=== PATIENT | male | born 1975 | race Caucasian/White ===

== ENCOUNTER 2017-11-02 19:10 | Emergency (ER) | payer OTHER ==
[~2017-11-02] VITALS: Ht 172.7 cm; Wt 95.0 kg
[2017-11-02 19:11] VITALS: BP 127/83; PULSE 83; RESP 20; TEMP 98.6; O2SAT 99
--- NOTE | 2017-11-02 19:17 | PD ---
HPI Chief Complaint: Flank/Kidney Pain Time Seen by Provider: 19:16 Travel History International Travel<30 days: No Contact w/Intl Traveler<30days: No Traveled to known affect area: No History of Present Illness HPI The patient is a 41 year old male who presents to the [facility] emergency department with a history of left flank pain that began suddenly approximately an hour ago. The patient reports that the pain is similar to when he had kidney stones in the past. He reports having pain that is sharp that is coming and going. He reports that the pain is severe when it occurs. The patient denies having any radiation of pain. He reports having associated nausea without vomiting. He denies having any diarrhea. He reports that he's been moving his bowels regularly. He denies having any dysuria or urinary frequency , however last week he did have an episode of urinary urgency and incontinence when trying to get to the bathroom. He reports that he's ever had this previously. His last kidney stone was several years ago. He denies having a urologist. On review of systems, patient denies having any known fevers, cough , congestion, neck pain, chest pain, shortness of breath, abdominal pain, or neurologic symptoms. PFSH Past Medical History Narrative Medical The patient's past medical history is significant for kidney stones, depression and anxiety, history of bursitis of the left hip and a cyst involving the left hip. Past Surgical History Narrative Surgical The patient's past surgical history is reportedly none. Social History Alcohol Use: Yes (1-2 drinks daily) Tobacco Use: No Substance Use: No Allergies-Medications (Allergen,Severity, Reaction): Coded Allergies: No Known Allergies (Unverified , 11/02/17) Reported Meds & Prescriptions Reported Meds & Active Scripts Active Hydrocodone-Acetaminophen 5-325 mg Tab 1 Tab PO Q6H PRN Flomax (Tamsulosin HCl) 0.4 Mg Cap 0.4 Mg PO HS Ibuprofen 600 Mg Tab 600 Mg PO Q8H PRN Narrative Medication Zoloft, meloxicam Review of Systems Except as stated in HPI: all other systems reviewed are Neg General / Constitutional: No: Fever Eyes: No: Visual changes HENT: No: Headaches Cardiovascular: No: Chest Pain or Discomfort Respiratory: No: Shortness of Breath Gastrointestinal: Positive: Nausea, No: Vomiting, Diarrhea, Abdominal Pain Genitourinary: Positive: Urgency, Flank Pain, No: Frequency, Dysuria Musculoskeletal: No: Pain Skin: No Rash Neurologic: No: Weakness, Change in Mentation, Slurred Speech, Sensory Disturbance Psychiatric: No: Depression Endocrine: No: Polydipsia Hematologic/Lymphatic: No: Easy Bruising Physical Exam Narrative General: The patient is a well-developed well-nourished male, uncomfortable appearing on arrival, writhing around in the bed related to left flank pain. Head and Neck exam: Head is normocephalic atraumatic. Eyes: EOMI, pupils are equal round and reactive to light. Nose: Midline septum with pink mucous membranes Mouth: Dentition unremarkable. Moist mucus membranes. Posterior oropharynx is not erythematous. No tonsillar hypertrophy. Uvula midline. Airway patent. Neck: No palpable lymphadenopathy. No nuchal rigidity. No thyromegaly. Cardiovascular: Regular rate and rhythm without murmurs, gallops, or rubs. Lungs: Clear to auscultation bilaterally. No wheezes, rhonchi, or rales. Abdomen: Soft, without tenderness to palpation in all 4 quadrants of the abdomen. No guarding, rebound, or rigidity. Normal bowel sounds are audible. No tenderness on palpation of McBurney's point. Extremities: No clubbing, cyanosis, or edema. 2+ pulses in all 4 extremities. No calf tenderness on palpation. Back: No spinous process tenderness to palpation. Left-sided CVA tenderness on palpation. Neurologic Exam: Grossly nonfocal. Skin Exam: No rash noted. Intact skin that is warm and dry. Data Data Last Documented VS Vital Signs Date Time Temp Pulse Resp B/P (MAP) Pulse Ox O2 Delivery O2 Flow Rate FiO2 11/02/17 19:23 65 20 127/98 (108) 100 Room Air 11/02/17 19:11 98.6 Orders Orders Complete Blood Count With Diff (11/02/17 19:16) Comprehensive Metabolic Panel (11/02/17 19:16) C-Reactive Protein (Crp) (11/02/17 19:16) Lipase (11/02/17 19:16) Urinalysis - C+S If Indicated (11/02/17 19:16) Iv Access Insert/Monitor (11/02/17 19:16) Ecg Monitoring (11/02/17 19:16) Oximetry (11/02/17 19:16) Sodium Chlor 0.9% 1000 Ml Inj (Ns 1000 M (11/02/17 19:45) Ondansetron Inj (Zofran Inj) (11/02/17 19:45) Ketorolac Inj (Toradol Inj) (11/02/17 19:45) Ct Abd/Pel W/O Iv Contrast (11/02/17 19:34) Ed Discharge Order (11/02/17 21:27) Labs Laboratory Tests Test 11/02/17 19:25 11/02/17 21:00 White Blood Count 10.0 TH/MM3 Red Blood Count 5.02 MIL/MM3 Hemoglobin 15.7 GM/DL Hematocrit 46.1 % Mean Corpuscular Volume 91.8 FL Mean Corpuscular Hemoglobin 31.2 PG Mean Corpuscular Hemoglobin Concent 34.0 % Red Cell Distribution Width 12.6 % Platelet Count 190 TH/MM3 Mean Platelet Volume 7.6 FL Neutrophils (%) (Auto) 65.1 % Lymphocytes (%) (Auto) 26.8 % Monocytes (%) (Auto) 6.0 % Eosinophils (%) (Auto) 1.4 % Basophils (%) (Auto) 0.7 % Neutrophils # (Auto) 6.5 TH/MM3 Lymphocytes # (Auto) 2.7 TH/MM3 Monocytes # (Auto) 0.6 TH/MM3 Eosinophils # (Auto) 0.1 TH/MM3 Basophils # (Auto) 0.1 TH/MM3 CBC Comment DIFF FINAL Differential Comment Blood Urea Nitrogen 16 MG/DL Creatinine 1.22 MG/DL Random Glucose 115 MG/DL Total Protein 7.7 GM/DL Albumin 4.6 GM/DL Calcium Level 9.5 MG/DL Alkaline Phosphatase 51 U/L Aspartate Amino Transf (AST/SGOT) 27 U/L Alanine Aminotransferase (ALT/SGPT) 46 U/L Total Bilirubin 1.2 MG/DL Sodium Level 138 MEQ/L Potassium Level 3.4 MEQ/L Chloride Level 104 MEQ/L Carbon Dioxide Level 26.5 MEQ/L Anion Gap 8 MEQ/L Estimat Glomerular Filtration Rate 65 ML/MIN C-Reactive Protein LESS THAN 0.29 MG/DL Lipase 230 U/L Urine Color YELLOW Urine Turbidity CLEAR Urine pH 6.5 Urine Specific [place] 1.024 Urine Protein TRACE mg/dL Urine Glucose (UA) NEG mg/dL Urine Ketones NEG mg/dL Urine Occult Blood MOD Urine Nitrite NEG Urine Bilirubin NEG Urine Urobilinogen LESS THAN 2.0 MG/DL Urine Leukocyte Esterase NEG Urine RBC 11 /hpf Urine WBC 2 /hpf Urine Calcium Oxalate Crystals RARE /hpf Urine Mucus MANY /lpf Microscopic Urinalysis Comment CULT NOT INDICATED MDM Medical Decision Making Medical Screen Exam Complete: Yes Emergency Medical Condition: Yes Medical Record Reviewed: Yes Differential Diagnosis Kidney stone, versus pyelonephritis, versus musculoskeletal strain Narrative Course During the course of the patients emergency department visit, the patients history, examination, and differential diagnosis were reviewed with the patient. The patient was placed on a monitoring analyst with oximetry and frequent blood pressure monitoring. The patient had IV access obtained and blood work sent for analysis. The patient was initially provided Toradol 15 mg IV, normal saline 1 L IV fluid bolus, Zofran 4 mg IV. The patients laboratory studies were reviewed and remarkable for a CBC that is within normal, CMP is remarkable for potassium of 3.4, glucose 1:15, total bilirubin 1.2, C-reactive protein less than 0.29, lipase 230, urinalysis shows moderate occult blood, 11 rbc's, rare calcium oxalate crystals. Radiology studies were reviewed and remarkable for a CT scan of the abdomen and pelvis that shows acute obstructive uropathy of the left distal ureter secondary to a 3 mm calcified calculus at the left UVJ resulting in mild ureteraal pelvocaliectasis on the left. The patient on reexamination is feeling improved. The patient will be discharged home with follow-up with the urologist on-call, and a prescription for Flomax, ibuprofen, and Lortab. The patient is instructed to discontinue meloxicam while taking the ibuprofen. The patient is resting comfortably and feels better, is alert and in no distress. The patients results and examination findings were discussed with the patient. The repeat examination is unremarkable and benign. The history, exam, diagnostic testing, and current condition do not suggest any significant pathology to warrant further testing, continued ED treatment, admission, or surgical evaluation at this point. The vital signs have been stable. The patient does not have uncontrollable pain, intractable vomiting, or other significant symptoms. The patient's condition is stable and appropriate for discharge. The patient will pursue further outpatient evaluation with a primary care physician or other designated or consulting physician as indicated in the discharge instructions. The patient expressed understanding and was agreeable with this plan. Diagnosis Primary Impression: Left flank pain Additional Impression: Left ureteral calculus Referrals: Lawrence Briceno MD 2 days Additional Instructions: The patient is instructed to discontinue meloxicam while taking the ibuprofen. Med/Other Pt SpecificInfo: Prescription(s) given, Med Stopped (meloxicam) Scripts Hydrocodone-Acetaminophen (Hydrocodone-Acetaminophen) 5-325 mg Tab 1 TAB PO Q6H Y for PAIN, #12 TAB 0 Refills Prov: Anna Burk MD 11/02/17 Tamsulosin (Flomax) 0.4 Mg Cap 0.4 MG PO HS for Manage Prostate Problems, #14 CAP 0 Refills Prov: Anna Burk MD 11/02/17 Ibuprofen (Ibuprofen) 600 Mg Tab 600 MG PO Q8H Y for PAIN, #12 TAB 0 Refills Prov: Anna Burk MD 11/02/17 Disposition: 01 DISCHARGE HOME Condition: Stable Anna Burk MD Nov 02, 2017 19:17
[2017-11-02 19:23] VITALS: BP 127/98; PULSE 65; RESP 20; O2SAT 100
[2017-11-02] MEDS ORDERED: KETOROLAC TROMETHAMINE 30 MG/ML (IVP) VIAL IV PUSH ONE (19:45)
[2017-11-02] MEDS ORDERED: SODIUM CHLOR 0.9% 1000 ML INJ 1,000 ML IV ONE (19:45)
[2017-11-02] MEDS ORDERED: ONDANSETRON HCL 4 MG/2 ML VIAL IV ONE (19:45)
[2017-11-02 19:49] LABS: AUTOMATED NEUTROPHIL # 6.5 TH/MM3 (1.8-7.7); BASOPHIL # 0.1 TH/MM3 (0-0.2); BASOPHIL % 0.7 % (0.0-2.0); EOSINOPHIL # 0.1 TH/MM3 (0-0.4); EOSINOPHIL % 1.4 % (0.0-4.0); HEMATOCRIT 46.1 % (39.0-51.0); HEMO FLAGS DIFF FINAL; LYMPH % 26.8 % (9.0-44.0); LYMPHOCYTE # 2.7 TH/MM3 (1.0-4.8); MEAN CELL VOLUME 91.8 FL (80.0-100.0); MEAN CORPUSCULAR HEMOGLOBIN 31.2 PG (27.0-34.0); NEUT % 65.1 % (16.0-70.0); PLATELET COUNT 190 TH/MM3 (150-450); RED BLOOD COUNT 5.02 MIL/MM3 (4.50-5.90); RED CELL DISTRIBUTION WIDTH 12.6 % (11.6-17.2)
[2017-11-02 20:13] LABS: ANION GAP 8 MEQ/L (5-15); AST (GOT) 27 U/L (15-37); BICARBONATE 26.5 MEQ/L (21.0-32.0); BLOOD UREA NITROGEN 16 MG/DL (7-18); CHLORIDE 104 MEQ/L (98-107); GLOMERULAR FILTRATION RATE 65 ML/MIN (>89); POTASSIUM 3.4 MEQ/L (3.5-5.1); SODIUM (NA) 138 MEQ/L (136-145)
[2017-11-02 20:14] LABS: ALT (GPT) 46 U/L (12-78)
[2017-11-02 20:15] LABS: ALKALINE PHOSPHATASE 51 U/L (45-117); TOTAL BILIRUBIN ADULT 1.2 MG/DL (0.2-1.0)
--- NOTE | 2017-11-02 20:49 | RADRPT ---
EXAM DATE/TIME: 11/02/2017 20:21 [place] COMPARISON: No previous studies available for comparison. INDICATIONS : Patient complains of left flank pain. ORAL CONTRAST: No oral contrast ingested. RADIATION DOSE: 8.44 CTDIvol (mGy) MEDICAL HISTORY : Renal calculi. SURGICAL HISTORY : None. ENCOUNTER: Initial ACUITY: 1 day PAIN SCALE: 5/10 LOCATION: Left flank TECHNIQUE: Volumetric scanning of the abdomen and pelvis was performed. Using automated exposure control and ad justment of the mA and/or kV according to patient size, radiation dose was kept as low as reasonably achievable to obtain optimal diagnostic quality images. DICOM format image data is available electro nically for review and comparison. FINDINGS: There is evidence of acute obstructive uropathy of the left distal ureter secondary to a 3 mm calcifi ed calculus at the left ureterovesical junction resulting in mild ureteral pelvocaliectasis on the le ft. There is a tiny 2 mm calcified nonobstructing right renal calculus. There is a 3.1 cm right renal cyst. The liver is enlarged and demonstrates diffuse fatty infiltration. The spleen is mildly enlarg ed. Evaluation of the solid organs of the abdomen is limited by the lack of intravenous contrast. CONCLUSION: 1. Acute obstructive uropathy of the left distal ureter secondary to a 3 mm calcified calculus at the left ureterovesical junction resulting in mild ureteral pelvocaliectasis on the left. 2. Tiny 2 mm calcified nonobstructing right renal calculus. 3. 3.1 cm right renal cyst. 4. Enlarged fatty liver. 5. Mild splenomegaly Ole Parish MD on November 02, 2017 at 20:42 Board Certified Radiologist. This report was verified electronically.
[2017-11-02] MEDS ORDERED: TAMS5CAP PO (21:18)
[2017-11-02] MEDS ORDERED: HYDR-3516 PO (21:18)
[2017-11-02] MEDS ORDERED: IBUP-232 PO (21:18)
[2017-11-02 21:22] LABS: BLOOD, URINE MOD (NEG); CALCIUM OXALATE CRYSTALS,URINE RARE /hpf; COMMENT (UR) CULT NOT INDICATED; CULTURE IF INDICATED CULT NOT INDICATED; GLUCOSE,URINE NEG (NEG); KETONE, URINE NEG (NEG); MUCUS URINE MANY /lpf (OCC); NITRITE,URINE NEG (NEG); PH, URINE 6.5 (5.0-8.5); URINE COLOR YELLOW (YELLW/STRAW)
[2017-11-02] MEDS ORDERED: ZOLO50TA PO (21:29)
[2017-11-02] MEDS ORDERED: MOBI7.5T PO (21:29)
== END 2017-11-02 21:39 | disposition home or self-care (01) ==
LOC: NEPE 19:10
DX: R10.9 Unspecified abdominal pain (principal); N20.0 Calculus of kidney; K76.0 Fatty (change of) liver, not elsewhere classified; R16.1 Splenomegaly, not elsewhere classified; F32.9 Major depressive disorder, single episode, unspecified; F41.9 Anxiety disorder, unspecified; Z79.899 Other long term (current) drug therapy
CPT/HCPCS: 74176; 80053; 81001; 83690; 85025; 86140; 96361; 96374; 96375; 99285; J1885; J2405; J7030

== ENCOUNTER → 2018-04-11 | Outpatient (CLI) | payer OTHER ==
[~2018-04-11] MED LIST: MOBI7.5T PO; ZOLO50TA PO
--- NOTE | 2018-04-11 18:27 | EKG ---
Date Performed: 04/11/2018 Time Performed: 09:56:44 PTAGE: 42 years EKG: Sinus rhythm . Normal ECG NO PREVIOUS TRACING DOCTOR: Tanner Grande Interpretating Date/Time 04/11/2018 18:24:40
== END ==
LOC: HCAV 09:46
PROVIDERS: ATTEND Orthopaedic Surgery Orthopaedic Surgery of the Spine
DX: Z01.810 Encounter for preprocedural cardiovascular examination (principal)
CPT/HCPCS: 93005